=== PATIENT | male | born 1985 | race Two or more races ===

== ENCOUNTER 2023-04-10 17:57 | Inpatient (IN) | payer BC ==
[~2023-04-10] VITALS: Ht 172.7 cm; Wt 83.9 kg
--- NOTE | 2023-04-10 18:21 | NUR ---
SE RECIBE PTE ALERTA ORIENTADO X3.PTE REFIERE TENER DOLOR DE CANDIDA TIMMY DESDE ERNA EN LA NOCHE.SE NAT EKG SE PRESENTA A EL CUAL ORDENA COLOCAR EN FAST TRACK.SE PRESENTA A .SE JADA S/V Y SE UBICA.
--- NOTE | 2023-04-10 19:03 | NUR ---
SE JADA MUESTRAS DE LAB BAJO MEDIDAS ASEPTICAS.
== END 2023-04-11 14:45 | disposition home or self-care (01) | DRG 305 ==
LOC: ER 17:57 → MEDI 21:27
PROVIDERS: Internal Medicine; ADMIT Internal Medicine; ATTEND Internal Medicine
PROC: B246ZZZ Ultrasonography of Right and Left Heart (ICD-10-PCS; principal; 2023-04-10)
PROC: 4A12X4Z Monitoring of Cardiac Electrical Activity, External Approach (ICD-10-PCS; 2023-04-11)
DX: I16.9 Hypertensive crisis, unspecified (principal); I24.9 Acute ischemic heart disease, unspecified; I11.9 Hypertensive heart disease without heart failure; R77.8 Other specified abnormalities of plasma proteins